=== PATIENT | male | born 1970 | race Caucasian/White ===

== ENCOUNTER 2018-03-20 21:35 | Emergency (ER) | payer OTHER ==
[2018-03-20 21:40] VITALS: BP 145/84; PULSE 95; TEMP 98; BMI 22.9
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
--- NOTE | 2018-03-21 14:31 | EKG ---
Test Reason : Blood Pressure : / mmHG Vent. Rate : 053 BPM Atrial Rate : 053 BPM P-R Int : 160 ms QRS Dur : 096 ms QT Int : 428 ms P-R-T Axes : 069 075 056 degrees QTc Int : 401 ms SINUS BRADYCARDIA MODERATE VOLTAGE CRITERIA FOR LVH, MAY BE NORMAL VARIANT BORDERLINE ECG NO PREVIOUS ECGS AVAILABLE Confirmed by Sudarshan Martin ([id number]) on 03/21/2018 2:30:50 PM Referred By: Confirmed By:Sudarshan Martin
== END 2018-03-21 00:04 | disposition home or self-care (01) ==
LOC: JERFT 21:35 → JER 21:35
DX: F41.9 Anxiety disorder, unspecified (principal); Z63.0 Problems in relationship with spouse or partner
CPT/HCPCS: 93005; 93010; 99281-25